=== PATIENT | male | born 1965 | race Caucasian/White ===

== ENCOUNTER 2025-03-10 16:35 | Emergency (ER) | payer BC, SELFPAY ==
[2025-03-10 16:40] VITALS: BP 181/90
[2025-03-10 16:56] LABS: Hematocrit 46.7 % (39.0-52.0); Hemoglobin 15.7 g/dL (13.0-18.0); Mean Corp Hgb Conc. 33.6 g/dL (33.0-37.0); Mean Corpuscular Volume 90.3 fL (80.0-94.0); Nucleated Red Blood Cells % 0 % (-); Platelet Count 161 10^3/uL (130-400); Red Cell Dist. Width 13.0 % (11.5-14.5)
[2025-03-10 17:14] LABS: INR 1.02; PT 13.7 Sec (11.4-14.6)
[2025-03-10 17:19] LABS: ALT (SGPT) 14 U/L (0-50); AST (SGOT) 22 U/L (17-59); Albumin 4.2 g/dl (3.5-5.0); Alkaline Phosphatase 64 U/L (38-126); Blood Urea Nitrogen 9 mg/dl (9-20); Calcium 9.0 mg/dl (8.4-10.2); Carbon Dioxide 25 mmol/L (22-30); Chloride 107 mmol/L (98-107); Glucose 136 mg/dl (70-99); Potassium 4.0 mmol/L (3.5-5.1); Sodium 139 mmol/L (135-145); Total Protein 6.8 g/dl (6.3-8.2); eGFR > 60.00
[2025-03-10 17:32] LABS: Troponin I < 0.012 ng/ml
[2025-03-10 19:50] VITALS: BP 137/74
[2025-03-10 21:32] VITALS: BMI 36.1
[2025-03-10 22:19] LABS: Troponin I < 0.012 ng/ml
[2025-03-10 22:26] VITALS: BP 145/81
--- NOTE | 2025-03-10 22:36 | ED.GENMED ---
History of Present Illness
General
Chief Complaint: Chest Pain
Source: patient
Exam Limitations: none
Time Seen by Provider: 03/10/25 21:36
Nursing documentation reviewed up to this point in time: agreed with
History of Present Illness
History of Present Illness:
Patient to ED with sudden onset of left sided chest pain with radiation to left upper arm. Described as sharp. Pain lasted approx 5 minutes and then resolved. No associated n/v/diaphoresis. No SOB, dizziness, blurred vision. Has had similar
symptoms infrequently in the past. History of CAD, had bypass surgery in 2019.
Past History
Past History
ED Past Medical History: CAD, HTN and Hypercholesterolemia
ED Past Surgical History: Cardiac (CABG)
Review of Systems
Review of Systems
Allergies reviewed?: Yes
All Other Systems: ROS reviewed and negative except as documented in HPI and ROS
Constitutional: Reports no symptoms
EENT: Reports no symptoms
Respiratory: Reports no symptoms
Cardiac: Reports chest pain (sharp left chest pain radiating to left shoulder)
ABD/GI: Reports no symptoms
: Reports no symptoms
Musculoskeletal: Reports no symptoms
Skin: Reports no symptoms
Neurological: Reports no symptoms
Psychiatric: Reports no symptoms
Phy Exam
General Physical Exam
General Presentation: well appearing and no apparent distress
General age: appears stated age
General Skin: warm and dry
General Habitus: normal
General Mental: alert
General Hydration: appears well hydrated
Cardiovascular Exam
Cardiovascular Exam: regular rate/rhythm and no edema
Pulmonary Exam
Pulmonary Exam: lungs clear, no respiratory distress and chest non tender
Gastrointestinal Exam
Gastrointestinal Exam: non tender and soft
Musculoskeletal Exam
Musculoskeletal Exam: full ROM and neuro vasc intact
Skin Exam
Skin Exam: normal color, warm/dry and no rash
Psychiatric Exam
Psychiatric Exam: normal mood/affect
Scores
Heart Score for Chest Pain Patients
STEMI patient?: No
History: Slightly or Non-Suspicious
ECG: Normal
Age: >45 - <65 years
Risk Factors: >/= 3 Risk Factors or History of CAD
Troponin: </= Normal Limit
Heart Score for Chest Pain Patients: 3
Heart Score Risk: 2.5% MACE over next 6 weeks
Course
Orders/Labs/Results
Orders:
Orders
03/10/25 16:36
Electrocardiogram (*1) Urgent
Reason for Study: Chest Pain
EKG- Treatment ONCE
03/10/25 16:50
Complete Blood Count/With Diff Urgent
Comprehensive Metabolic Panel Urgent
Prothrombin Time Urgent
Troponin I Urgent
03/10/25 20:09
CR Chest - 2 Views Urgent
Comment:
Reason For Exam: chest pain
03/10/25 21:22
Troponin I Urgent
Abnormal Lab Results
03/10/25
16:50
Glucose 136 H mg/dl
(70-99)
03/10/25 16:50
03/10/25 16:50
Vital Signs
Initial and Last Documented VS:
Initial Vital Signs
Temp Pulse Resp BP Pulse Ox
98.8 F 72 18 181/90 96
03/10/25 16:40 03/10/25 16:40 03/10/25 16:40 03/10/25 16:40 03/10/25 16:40
Last Documented Vital Signs
Temp Pulse Resp BP Pulse Ox
98.5 F 87 20 137/74 98
03/10/25 19:50 03/10/25 19:50 03/10/25 19:50 03/10/25 19:50 03/10/25 19:50
*Radiology
Radiology exam reviewed: radiology read reviewed
*Pulse Oximetry
SaO2: 98
Oxygen Mode of Delivery: Room air
Patient hypoxic: no
*EKG
Interpretation: normal
Rate: normal
Rhythm: sinus
*Critical Care Note
Total Time (30-74mins, 75-104mins- exclusive of procedures): Not Applicable
Update Note
Update Note:
Patient to ED with complaint of sharp left chest pain with radiation to left shoulder. No associated symptoms. Lasted approx 5 minutes and then resolved. He remains symptom free. Labs, CXR reviewed, no concerning findings. Troponin neg x 2.
EKG NSR. Doubtful for ACS. Will disharge home and he will follow up with his private cardiolgist in the AM. Given instrucstions on s/s to return to ED and he is agreeable to plan
ED Attending Note
-
Portions of this chart may have been created with voice recognition software.� Occasional wrong word or��sound alike� substitutions may have occurred due to the inherent limitations of voice recognition software.
Discharge Plan
Departure
Patient Disposition: Home (Routine Discharge)
Date of Disposition: 03/10/25
Time of Disposition: 22:52
Patient with high blood pressure during this ER visit?: No
Condition: Good
Covid-19: Not Applicable
Discharge Problem:
Chest pain
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
Activity Restrictions/Additional Instructions:
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 Return to the emergency department immediately for any changes in/worsening of your symptoms
Interventions
Interventions:
*Risk Screen - Suicide Last Done: 03/10/25 16:40
*General Assessment Last Done: 03/10/25 16:40
*Neglect/Abuse Screening Last Done: 03/10/25 21:34
*ED- Fall Risk Assessment Last Done: 03/10/25 21:34
*ED COVID-19 Vaccine History Last Done: 03/10/25 21:34
ED- Cardiac Assessment Last Done: 03/10/25 21:34
Discharge Date and Time
Print Language: ZAMBIAN
== END 2025-03-10 23:13 | disposition home or self-care (01) ==
LOC: EMR 16:35
PROVIDERS: Emergency Medicine; EMERGENCY PHYSICIAN Emergency Medicine; FAMILY PHYSICIAN Physician Assistant
DX: R07.9 Chest pain, unspecified (principal); I25.810 Atherosclerosis of coronary artery bypass graft(s) without angina pectoris; I10 Essential (primary) hypertension; E78.00 Pure hypercholesterolemia, unspecified; Z95.1 Presence of aortocoronary bypass graft
CPT/HCPCS: 99284; 71046; 80053; 84484; 85025; 85610; 93005